=== PATIENT | female | born 1980 | race Caucasian/White ===

== ENCOUNTER → 2017-07-08 | Outpatient (CLI) | payer OTHER | LOC: FIMAGING 07:34 | PROVIDERS: ATTEND Obstetrics & Gynecology | DX: O09.512 Supervision of elderly primigravida, second trimester (principal); Z3A.20 20 weeks gestation of pregnancy ==

== ENCOUNTER 2017-11-16 15:10 | Inpatient (IN) | payer OTHER ==
[2017-11-16] MEDS ORDERED: LIDOCAINE 1% 300 MG/30 ML SDV SC PRN (15:59)
[2017-11-16] MEDS ORDERED: IBUPROFEN 600 MG TAB PO PRN (15:59)
[2017-11-16] MEDS ORDERED: TERBUTALINE SULFATE 1 MG/ML VIAL IV PRN (15:59)
[2017-11-16] MEDS ORDERED: EPSOM SALT 454 GM TP PRN (15:59)
[2017-11-16] MEDS ORDERED: OLIVE OIL 118 ML BTL MISC PRN (15:59)
[2017-11-16] MEDS ORDERED: MISOPROSTOL 200 MCG TAB PR PRN (15:59)
[2017-11-16] MEDS ORDERED: LR 1,000 ML IV PRN (15:59)
[2017-11-16] MEDS ORDERED: OXYTOCIN/RINGERS LACTATE 1,000 ML IV PRN (15:59)
[2017-11-16] MEDS ORDERED: PHENYLEPHRINE HCL 100 MCG/ML SYR ONE (16:17)
[2017-11-16] MEDS ORDERED: BUPIVACAINE 0.25% 30 ML SDV ONE (16:17)
[2017-11-16] MEDS ORDERED: fentaNYL 100 MCG/2 ML INJ ONE (16:17)
[2017-11-16] MEDS ORDERED: LIDOCAINE 1% 300 MG/30 ML SDV ONE (16:26)
[2017-11-16] MEDS ORDERED: OLIVE OIL 118 ML BTL ONE (16:26)
[2017-11-16] MEDS ORDERED: AMMONIA AROMATIC 1 EACH AMP IH ONE (16:27)
[2017-11-16] MEDS ORDERED: MISOPROSTOL 200 MCG TAB ONE (16:27)
[2017-11-16] MEDS ORDERED: TERBUTALINE SULFATE 1 MG/ML VIAL ONE (16:27)
[2017-11-16] MEDS ORDERED: OXYTOCIN 10 UNIT/ML VIAL ONE (16:27)
--- NOTE | 2017-11-16 16:27 | PDGENHP ---
History and Physical History and Physical: CARE: [facility] HPI: Patient is a 36 yo G 1 P 0 that presents to L&D with complaints of regular painful contractions that started early this am that have become progressively more uncomfortable. She reports good movement, denies LOF or VB. . EDC: 11/25/17 which is based on LMP: 02/18/18 which is known and consistent with Ultrasound at 9 weeks. Her is complicated by: AMA Review of Systems: Constitutional: Denies any fever, chills, or fatigue HEENT: denies any visual changes, difficulty swallowing, hearing loss Cardiovascular: Denies any chest pain, palpitations, leg swelling Respiratory: denies any cough, wheezing, or shortness of breathe GI: Denies any nausea, vomiting, diarrhea, constipation : denies any dysuria, urgency, frequency, vaginal bleeding Musculoskeletal: denies any muscle or bone pain Skin: denies any rashes Neuro: denies any headache, seizures, lightheadedness, dizziness, or loss of consciousness Psychiatric: denies any depression, anxiety, or SI/HI thoughts HISTORY: Previous OB history: none Past medical history: none Past surgical history: wisdom teeth, left ACL repair ' Medications: PNV, magnesium, DHA Allergies (list reaction): vicodan - severe nausea/vomitting LABS: Rh: A pos ABS: Neg Rubella: Immune HbsAg: NR HIV: NR VDRL: NR 1hr: 108 GC: Neg Chlamydia: Neg Pap: Normal-03/08 GBS: neg BMI: (prepreg) 26 PHYSICAL EXAM: Constitutional: WN, A&Ox3 HEENT: normocephalic atraumatic, supple Heart: RRR, no murmur Chest: CTA-B Abdomen: Soft, nontender, gravid SVE: 3-4/100/-2 Extremities: sml pedal edema, negative diony's sign Neuro: grossly normal Psych: normal affect assessment: Reassuring FHTs, baseline 120s +accels, no decels, moderate variability Contractions: toco q 2-3 moderate Assessment: 1) 36 yo G 1 P 0 with IUP@ 38.5 weeks ega 2) active labor 3) GBS neg 4) Cat 1 FHR tracing 5) Desires epidural Plan: 1) Admit to L&D 2) Anesthesia notified for epidural placement 3) Continuous EFM 4) Anticipate
[2017-11-16 16:39] LABS: PLATELET COUNT 198 10^3/uL (150-400)
[2017-11-16] MEDS ORDERED: fentaNYL 200 MCG, BUPIVACAINE 0.5% 20 ML in NS 100 ML EP SCH (17:00)
--- NOTE | 2017-11-16 17:04 | PREANESOB ---
Obstetric Pre-Anesthesia Info - General Info Proposed Procedure: PCEA - Info Status: Full Term (39 weeks) Monitors: External - Labor Status Indications for Labor Analgesia: Pain Control Labor Epidural: Yes Anesthesia Allergies/Adverse Reactions: Allergy/AdvReac Type Severity Reaction Status Date / Time No Known Allergies Allergy Unverified 11/16/17 15:57 Visit Medications: Generic Name Dose Route Start Last Admin Trade Name Frenicholas PRN Reason Stop Dose Admin Lactated Ringer's 1,000 mls @ 0 mls/hr 11/16/17 15:59 Lr IV 11/17/17 15:58 PRN PRN SEE PROTOCOL CONDITIONS Protocol Per Protocol Oxytocin/Lactated Ringer's 1,000 mls @ 125 mls/hr 11/16/17 15:59 Pitocin 20 Units/Lr (Premix) IV PRN PRN Post bleeding Fentanyl 200 mcg/ Bupivacaine 100 mls @ 0 mls/hr 11/16/17 17:00 HCl 20 ml/ Sodium Chloride EP 11/26/17 16:59 CONT BRENDA Protocol As Directed Ibuprofen 600 mg 11/16/17 15:59 Motrin PO ONCE PRN post , pain Lidocaine HCl 300 mg 11/16/17 15:59 Lidocaine Hcl 1% SC 05/15/18 15:58 ONCE PRN episiotomy Magnesium Sulfate 454 gm 11/16/17 15:59 Epsom Salt TP 05/15/18 15:58 Q1H PRN perineal discomfort Misoprostol 800 - 1,000 mcg 11/16/17 15:59 Cytotec UT ONCE PRN Vaginal Atony/Bleeding [place] Oil 118 ml 11/16/17 15:59 Sweet Oil MISC 05/15/18 15:58 ONCE PRN perineal massage Terbutaline Sulfate 0.25 mg 11/16/17 15:59 Brethine IV 05/15/18 15:58 ONCE PRN Tachysystole Discontinued Medications Generic Name Dose Route Start Last Admin Trade Name Freq PRN Reason Stop Dose Admin Ammonia (Aromatic Spirit) Confirm 11/16/17 16:27 Ammonia Aromatic Administered 11/16/17 16:28 Dose 1 each IH .STK-MED ONE Bupivacaine HCl Confirm 11/16/17 16:17 Sensorcaine 0.25% Sdv Administered 11/16/17 16:18 Dose 30 ml .ROUTE .STK-MED ONE Fentanyl Confirm 11/16/17 16:17 Sublimaze Administered 11/16/17 16:18 Dose 100 mcg .ROUTE .STK-MED ONE Lidocaine HCl Confirm 11/16/17 16:26 Lidocaine Hcl 1% Administered 11/16/17 16:27 Dose 300 mg .ROUTE .STK-MED ONE Misoprostol Confirm 11/16/17 16:27 Cytotec Administered 11/16/17 16:28 Dose 1,000 mcg .ROUTE .STK-MED ONE [place] Oil Confirm 11/16/17 16:26 Sweet Oil Administered 11/16/17 16:27 Dose 118 ml .ROUTE .STK-MED ONE Oxytocin Confirm 11/16/17 16:27 Pitocin Administered 11/16/17 16:28 Dose 40 unit .ROUTE .STK-MED ONE Phenylephrine HCl Confirm 11/16/17 16:17 Neosynephrine Administered 11/16/17 16:18 Dose 1,000 mcg .ROUTE .STK-MED ONE Terbutaline Sulfate Confirm 11/16/17 16:27 Brethine Administered 11/16/17 16:28 Dose 1 mg .ROUTE .STK-MED ONE - Vital Signs Height/Weight (Nursing): Height 165.1 cm Weight 90.718 kg Labs: 11/16/17 16:00 Patient ABO/Rh A POSITIVE 11/16/17 16:00
--- NOTE | 2017-11-16 17:06 | PDANEPAE ---
ANE History of Present Illness Labor ANE Review of Systems Review of Systems: ANE Patient History - Allergies Allergies/Adverse Reactions: No Known Allergies Allergy (Unverified 11/16/17 15:57) - Anes Hx Anes Hx: no prior problems (No epidurals) ANE Labs/Vital Signs - Labs Result Diagrams: 11/16/17 16:00 - Vital Signs Height: 165.1 cm Weight: 90.718 kg ANE Physical Exam - Airway Neck exam: FROM Mallampati Score: Class 1 Mouth exam: normal dental/mouth exam - Pulmonary Pulmonary: no respiratory distress - Cardiovascular Cardiovascular: regular rate and rhythym - ASA Status ASA Status: II ANE Anesthesia Plan Anesthesia Plan: epidural
--- NOTE | 2017-11-16 17:09 | POSTANESTH ---
Post Anesthetic Evaluation Cardiovascular Status: Similar to Pre-Op Cond Respiratory Status: Similar to Pre-op Cond. Level of Consciousness/Mental Status: Can Participate in Eval Pain Control: Adequate, Prn Tx Ordered (Good pain control with epidural) Nausea/Vomiting Control: Adequate, Prn Tx Ordered Complications Possibly Related to Anesthesia: None Noted
[2017-11-16] MEDS ORDERED: LR 500 ML IV SCH (17:30)
[2017-11-16] MEDS ORDERED: fentaNYL 2MCG/ML/BUP 0.1% RTU 100 ML EP SCH (17:30)
--- NOTE | 2017-11-16 21:49 | OBDEL ---
Info Type: Vaginal Presentation at Delivery: Vertex L&D Analgesia/Anesthesia Type: Epidural GBS+: No Indications for Delivery: Spontaneous Labor Vaginal Delivery - Delivery Provider Delivery Physician/CNM: Miladys Cesar - Labor and Delivery Onset of Contractions Date: 11/16/17 Onset of Contractions Time: 06:30 Onset of Contractions Type: Spontaneous Rupture of Membranes Date: 11/16/17 Rupture of Membranes Time: 17:06 Rupture of Membranes Type: Artificial Amniotic Fluid Color: Clear Dilation Complete Date: 11/16/17 Dilation Complete Time: 20:53 Placenta Delivery Date: 11/16/17 Placenta Delivery Time: 21:09 Total Hours of Labor: 14 Non-surgical Procedures: Amniotomy Laceration: 1st Degree (vaginal) Repair: 3-0, Vicryl Vaginal Sponge Count Correct: Yes Vaginal Needle Count Correct: Yes Vaginal Sweep Performed: Yes EBL: 200 Delivery Events: Other (Specify) (nuchal hand X2) [place] Data ESTHER: 11/25/17 Gestational Age: 38 week(s) and 5 day(s) Lara Sex of : Male Score (1 Min): 8 Score (5 Min): 9 ICD10 Worksheet Patient Problems: Problems Problem Status Onset Vaginal delivery Acute - ICD10 Problem Qualifiers (1) Vaginal delivery
[2017-11-16] MEDS ORDERED: HYDROCORTISONE 0.5% CREAM TP PRN (21:51)
[2017-11-16] MEDS ORDERED: SIMETHICONE 80 MG TAB CHEW PO PRN (21:51)
[2017-11-17] MEDS: IBUPROFEN 600 MG TAB PO SCH ×4 (03:37→22:32)
--- NOTE | 2017-11-17 10:04 | POSTANESTH ---
Post Anesthetic Evaluation Cardiovascular Status: Normal, Stable Respiratory Status: Normal, Stable Level of Consciousness/Mental Status: Can Participate in Eval Pain Control: Adequate, Prn Tx Ordered Nausea/Vomiting Control: Adequate, Prn Tx Ordered Complications Possibly Related to Anesthesia: None Noted (Vaginal deliver about 9 pm yesterday. Good pain control for labor and delivery.)
[2017-11-17] MEDS: DOCUSATE SODIUM 100 MG CAP PO PRN (10:18)
--- NOTE | 2017-11-17 19:44 | OBPP ---
Progress Note Assessment/Plan: Assessment: ppd# 1 s/p breast feeding Plan: routine post care 11/17/17 19:42 Subjective/ Course: 11/17/17 19:43 patient is doing well. pain is well controlled. normal lochia. denies headache and changes in vision. breast feeding is going well. ambulating. passing gas. Objective: 11/16/17 16:00 Patient ABO/Rh A POSITIVE 11/16/17 16:00 Temp Pulse Resp BP Pulse Ox 36.8 C 71 16 108/75 11/17/17 08:03 11/17/17 08:03 11/17/17 08:03 11/17/17 08:03 Physical Exam - Physical Exam Neck: non-tender, full range of motion, supple Respiratory: chest non-tender, lungs clear, normal breath sounds Cardiac/Chest: normal peripheral pulses, regular rate, rhythm Abdomen: normal bowel sounds, non-tender, other (fundus firm and non tender) Extremities: normal range of motion, non-tender, normal inspection, normal capillary refill Skin: normal color, warm/dry Neuro/Psych: no motor/sensory deficits, alert, normal mood/affect, oriented x 3
[2017-11-17] MEDS: ACETAMINOPHEN 325 MG TAB PO SCH (23:12)
[2017-11-18] MEDS: ACETAMINOPHEN 325 MG TAB PO SCH ×2 (05:08→13:36)
[2017-11-18] MEDS: IBUPROFEN 600 MG TAB PO SCH ×3 (05:08→11:10)
[2017-11-18] MEDS: DOCUSATE SODIUM 100 MG CAP PO PRN (07:54)
--- NOTE | 2017-11-18 09:10 | OBPP ---
Progress Note Assessment/Plan: Assessment: 36 y/o PPD #2 s/p doing well. Plan: D/c home today. Follow up @ [facility] 4 and 6 weeks. Call for fever, heavy bleeding , signs of mastitis or other concerns. 11/18/17 09:09 Subjective/ Course: 11/17/17 19:43 patient is doing well. pain is well controlled. normal lochia. denies headache and changes in vision. breast feeding is going well. ambulating. passing gas. 11/18/17 09:07 Pt is doing well this am. She has good pain control with alternating Ibuprofen , and Tylenol. She is ambulating and voiding and has min lochia. Breast feeding is going well and she is beginning to get engorged. Baby has a good latch and is doing well. She is ready to go home today. Objective: 11/16/17 16:00 Patient ABO/Rh A POSITIVE 11/16/17 16:00 Temp Pulse Resp BP Pulse Ox 36.8 C 74 16 116/81 H 11/17/17 20:00 11/17/17 20:00 11/17/17 20:00 11/17/17 20:00 Uterine Position/Fundal Height: Umbilicus -2 Uterine Tone: Firm Physical Exam - Physical Exam General Appearance: alert, no apparent distress Neck: non-tender, full range of motion, supple Respiratory: chest non-tender, lungs clear, normal breath sounds Cardiac/Chest: regular rate, rhythm Abdomen: normal bowel sounds Extremities: swelling (no), Gela's sign (neg)
--- NOTE | 2017-11-18 09:38 | OBGCSDC ---
General Delivery Information - General Info : 1 Para: 1 Abortions: 0 Type: Vaginal L&D Analgesia/Anesthesia Type: Epidural Admission Date: 11/16/17 Labs: Patient ABO/Rh A POSITIVE 11/16/17 16:00 Hct 38.1 % (38.0-47.0) 11/16/17 16:00 - Hospital Course : 11/17/17 19:43 patient is doing well. pain is well controlled. normal lochia. denies headache and changes in vision. breast feeding is going well. ambulating. passing gas. 11/18/17 09:07 Pt is doing well this am. She has good pain control with alternating Ibuprofen , and Tylenol. She is ambulating and voiding and has min lochia. Breast feeding is going well and she is beginning to get engorged. Baby has a good latch and is doing well. She is ready to go home today. Vaginal - Delivery Provider Delivery Physician/CNM: Miladys Cesar - Diagnosis Labor: Spontaneous Rupture of Membranes Type: Artificial Amniotic Fluid Color: Clear Laceration: 1st Degree (vaginal) Repair: 3-0, Vicryl Delivery Events: Other (Specify) (nuchal hand X2) - Procedures Non-surgical Procedures: Amniotomy - Delivery Non-surgical Procedures: Amniotomy EBL: 200 Data ESTHER: 11/25/17 Gestational Age: 39 week(s) and 0 day(s) Lara Delivery Date: 11/16/17 Delivery Time: 21:03 Sex of : Male Stacy Weight (gm): 2374 g Score (1 Min): 8 Score (5 Min): 9 Discharge Information - Discharge Information Prescriptions: Ibuprofen [Motrin (*)] 600 mg PO Q6HRS #30 tab Condition: Good Instruction/Follow Up: Four Weeks, Six Weeks
[2017-11-18 10:12] VITALS: BP 114/78
== END 2017-11-18 16:30 | disposition home or self-care (01) | DRG 775 ==
LOC: FLD 15:10 → FOB 11-17 00:41
PROVIDERS: ADMIT Advanced Practice Midwife; ATTEND Advanced Practice Midwife
PROC: 10907ZC Drainage of Amniotic Fluid, Therapeutic from Products of Conception, Via Natural or Artificial Opening (ICD-10-PCS; principal; 2017-11-18)
PROC: 10E0XZZ Delivery of Products of Conception, External Approach (ICD-10-PCS; principal; 2017-11-18)
PROC: 0HQ9XZZ Repair Perineum Skin, External Approach (ICD-10-PCS; principal; 2017-11-18)
DX: O70.0 First degree perineal laceration during delivery (principal); Z37.0 Single live birth; Z3A.39 39 weeks gestation of pregnancy; O69.82X0 Labor and delivery complicated by other cord entanglement, without compression, not applicable or unspecified
CPT/HCPCS: G0463; J2370; J2590; J3010; J3105